=== PATIENT | female | born 1995 | race Caucasian/White ===

== ENCOUNTER 2019-05-13 09:48 | Emergency (ER) | payer OTHER ==
[~2019-05-13] VITALS: Ht 165.1 cm; Wt 99.8 kg
[~2019-05-13 09:48] MED LIST: MOTRIN600 MG PO; ZYRTEC10 MG PO
[2019-05-13] MEDS ORDERED: Motrin,Rufen800 MG PO ×2 (11:54→11:57)
[2019-05-13] MEDS ORDERED: CYCLOBENZAPRINE5 M3 PO ×2 (11:54→11:57)
== END 2019-05-13 12:05 | disposition home or self-care (01) ==
LOC: ED 09:48
DX: S20.212A Contusion of left front wall of thorax, initial encounter (principal); M25.512 Pain in left shoulder; Z79.899 Other long term (current) drug therapy; X50.0XXA Overexertion from strenuous movement or load, initial encounter; X50.1XXA Overexertion from prolonged static or awkward postures, initial encounter; Y93.84 Activity, sleeping; Y92.098 Other place in other non-institutional residence as the place of occurrence of the external cause; Y99.8 Other external cause status

== ENCOUNTER → 2024-12-08 | Outpatient (CLI) | payer SELFPAY ==
[~2024-12-08] MED LIST changes: +CYCLOBENZAPRINE5 M3 PO; +Motrin,Rufen800 MG PO
== END | disposition home or self-care (01) ==
LOC: LAB 10:25
PROVIDERS: ATTEND Nurse Practitioner Women's Health
DX: N92.6 Irregular menstruation, unspecified (principal)